=== PATIENT | female | born 1955 | race African-American/Black ===

== ENCOUNTER → 2018-08-23 | Day surgery (SDC) | payer BC ==
[~2018-08-23] MED LIST: FENTANYL CITRATE/PF 100MCG/2 ML INJ ONE; FISH OIL PO; HYDROCHLOROTHIA25 MG PO; HYOSCYAMINE SULFATE 0.5 MG/ML INJ ONE; LIDOCAINE HCL 2% LOCAL INJ 5 ML SDV VIAL INJ ONE; LISINOPRIL-HCT1 EACH PO; LORAZEPAM0.5 MG PO; MIDAZOLAM HCL 2 MG/2 ML VIAL ONE; MULTIVITAMINS1 EAC8 PO; POTASSIUM CHLO10 MEQ PO; PROPOFOL IV EMULSION 10 MG/ML 50 ML VIAL ONE; VITAMIN D PO; ZESTRIL20 MG PO
--- NOTE | 2018-08-23 23:19 | Operative Report ---
DATE OF PROCEDURE: August 23, 2018 REFERRING PHYSICIAN: Dr. Lauri Rosario. PROCEDURE PERFORMED: Colonoscopy and polypectomy. INDICATIONS FOR COLONOSCOPY: Colorectal cancer screening. MEDICATION: Patient was done under MAC. Please see anesthesiologist's note. PROCEDURE: With the patient in left lateral decubitus position, a flexible fiberoptic Olympus colonoscope was inserted into the rectum with ease and advanced all the way to the cecum. Two minute polyps were hot biopsied from the cecum and 1 polypectomy site was hemoclipped. The scope was then withdrawn slowly. One polyp was snared and 1 polyp was hot biopsied from the ascending colon and 1 polypectomy site was hemoclipped. The transverse and descending appeared to be within normal limits. One polyp was hot biopsied from the sigmoid colon. Four polyps were hot biopsied from the rectum. The scope was then retroflexed into the distal rectum and small internal hemorrhoids were noted, none of which was actively bleeding. The scope was then straightened out. It was subsequently withdrawn. Patient tolerated the procedure well. IMPRESSION 1. Cecal polyps x2, hot biopsied, 1 polypectomy site hemoclipped. 2. Ascending colon polyps x2, 1 snared and 1 hot biopsied, 1 polypectomy site hemoclipped. 3. Sigmoid colon polyp x1, hot biopsied. 4. Rectal polyps x4, hot biopsied. 5. Internal hemorrhoids, none actively bleeding. PLAN: Follow up histology. Initiate high-fiber, low-fat diet. Initiate high-fiber supplement. Patient might benefit from a followup colonoscopy in 3 years; a total of 9 polyps were removed. Job#: [id number] RONNIE cc:LAURI ROSARIO DO
== END | disposition home or self-care (01) ==
LOC: ENDO 12:36
PROVIDERS: ATTEND Internal Medicine Gastroenterology
DX: Z12.11 Encounter for screening for malignant neoplasm of colon (principal); K63.5 Polyp of colon; K62.1 Rectal polyp; K64.8 Other hemorrhoids; K62.89 Other specified diseases of anus and rectum; E66.3 Overweight; I10 Essential (primary) hypertension; F41.9 Anxiety disorder, unspecified; Z91.040 Latex allergy status; Z01.810 Encounter for preprocedural cardiovascular examination; Z68.28 Body mass index [BMI] 28.0-28.9, adult
CPT/HCPCS: 45384; 45385; 93005; J1980; J2001; J2250; 45378

== ENCOUNTER 2021-09-07 22:35 | Inpatient (IN) | payer BC ==
[~2021-09-07] VITALS: Ht 165.1 cm; Wt 73.9 kg
[~2021-09-07 22:35] MED LIST changes: -FENTANYL CITRATE/PF 100MCG/2 ML INJ ONE; -HYOSCYAMINE SULFATE 0.5 MG/ML INJ ONE; -LIDOCAINE HCL 2% LOCAL INJ 5 ML SDV VIAL INJ ONE; -MIDAZOLAM HCL 2 MG/2 ML VIAL ONE; -PROPOFOL IV EMULSION 10 MG/ML 50 ML VIAL ONE
[2021-09-07] MEDS ORDERED: FAMOTIDINE 20 MG/2 ML VIAL IV STA (22:39)
[2021-09-07] MEDS ORDERED: DIPHENHYDRAMINE HCL INJ 50 MG/ML VIAL IV ONE (22:45)
[2021-09-07] MEDS ORDERED: METHYLPREDNISOLONE SOD SUCC 125 MG/2ML VIAL IV ONE (22:45)
[2021-09-07 22:51] LABS: BASOPHILS % 0.3 % (0.0-1.0); EOSINOPHILS % 0.1 % (0.0-6.0); HEMATOCRIT 36.4 % (34.2-44.1); HEMOGLOBIN 12.6 g/dL (12.0-16.0); LYMPHOCYTES % 28.6 % (18.0-39.1); MEAN CORPUSCULAR HEMOGLOBIN 31.3 pg (28-32); MEAN CORPUSCULAR HGB CONC 34.6 g/dL (31-35); MEAN CORPUSCULAR VOLUME 90.3 fL (81-99); MONOCYTES # (AUTO) 0.3 (0.2-0.8); MONOCYTES % 4.6 % (4.4-11.3); NEUTROPHILS # (AUTO) 4.7 (2.1-6.9); NEUTROPHILS % 66.1 % (38.7-80.0); PLATELET COUNT 222 x10e3/uL (140-360); RED BLOOD COUNT 4.03 x10e6/uL (3.6-5.1); RED CELL DISTRIBUTION WIDTH 12.2 % (11.7-14.4)
[2021-09-07 23:09] LABS: ALBUMIN 3.7 g/dL (3.5-5.0); ALBUMIN/GLOBULIN RATIO 0.9 (0.8-2.0); ANION GAP 17.2 mmol/L (8-16); CALCIUM 8.6 mg/dL (8.4-10.2); CREATININE, SERUM 1.05 mg/dL (0.57-1.11); POTASSIUM 3.2 mmol/L (3.5-5.1)
[2021-09-08] VITALS (10 sets, daily range): BP systolic 109–139; BP diastolic 66–96
[2021-09-08] MEDS ORDERED: SODIUM CHLORIDE 0.9% 250ML 250 ML ONE (01:34)
[2021-09-08] MEDS ORDERED: ONDANSETRON HCL INJ 2MG/ML 2ML 2 MG/ML VIAL IV PRN (04:15)
[2021-09-08] MEDS ORDERED: SODIUM CHLORIDE FLUSH 10 ML SYR INJ PRN (04:15)
[2021-09-08] MEDS: DIPHENHYDRAMINE HCL INJ 50 MG/ML VIAL IV SCH ×4 (06:15→23:32)
[2021-09-08] MEDS: METHYLPREDNISOLONE SOD SUCC 40 MG/ML VIAL 1ML IV SCH ×4 (06:16→23:32)
[2021-09-08] MEDS: FAMOTIDINE 20 MG/2 ML VIAL IV SCH ×2 (08:41→17:01)
[2021-09-09] VITALS (14 sets, daily range): BP systolic 118–139; BP diastolic 68–81
[2021-09-09] MEDS: METHYLPREDNISOLONE SOD SUCC 40 MG/ML VIAL 1ML IV SCH ×2 (05:43→12:21)
[2021-09-09] MEDS: DIPHENHYDRAMINE HCL INJ 50 MG/ML VIAL IV SCH ×2 (05:43→12:21)
[2021-09-09 06:25] LABS: BASOPHILS % 0.1 % (0.0-1.0); HEMATOCRIT 33.4 % (34.2-44.1); HEMOGLOBIN 11.4 g/dL (12.0-16.0); LYMPHOCYTES # (AUTO) 1.6 (1.0-3.2); LYMPHOCYTES % 9.6 % (18.0-39.1); MEAN CORPUSCULAR HEMOGLOBIN 31.6 pg (28-32); MEAN CORPUSCULAR HGB CONC 34.1 g/dL (31-35); MEAN CORPUSCULAR VOLUME 92.5 fL (81-99); MONOCYTES # (AUTO) 0.4 (0.2-0.8); MONOCYTES % 2.2 % (4.4-11.3); NEUTROPHILS # (AUTO) 14.1 (2.1-6.9); NEUTROPHILS % 87.4 % (38.7-80.0); PLATELET COUNT 237 x10e3/uL (140-360); RED BLOOD COUNT 3.61 x10e6/uL (3.6-5.1); RED CELL DISTRIBUTION WIDTH 12.4 % (11.7-14.4)
[2021-09-09 07:00] LABS: ANION GAP 17.2 mmol/L (8-16); CALCIUM 9.8 mg/dL (8.4-10.2); CREATININE, SERUM 0.94 mg/dL (0.57-1.11); POTASSIUM 3.2 mmol/L (3.5-5.1)
[2021-09-09] MEDS: FAMOTIDINE 20 MG/2 ML VIAL IV SCH (08:22)
[2021-09-09] MEDS ORDERED: POTASSIUM CHLORIDE 20 MEQ TAB CR PO NR ×2 (12:33→15:14)
== END 2021-09-09 16:00 | disposition home or self-care (01) | DRG 916 ==
LOC: ER 22:41 → ERHOLD 09-08 04:15 → ICU 09-08 07:50
PROC: 30233K1 Transfusion of Nonautologous Frozen Plasma into Peripheral Vein, Percutaneous Approach (ICD-10-PCS; principal; 2021-09-08)
DX: T78.3XXA Angioneurotic edema, initial encounter (principal); T44.5X5A Adverse effect of predominantly beta-adrenoreceptor agonists, initial encounter; I10 Essential (primary) hypertension; E87.6 Hypokalemia; Z20.822 Contact with and (suspected) exposure to COVID-19
CPT/HCPCS: 36415; 80048; 80053; 84132; 85025; 86850; 86900; 99284; J1200; J2920; J2930; J7050; P9017; U0002